=== PATIENT | female | born 1965 | race Caucasian/White ===

== ENCOUNTER 2016-08-05 09:52 | Emergency (ER) | payer OTHER ==
[~2016-08-05] VITALS: Ht 157.5 cm; Wt 109.0 kg
[~2016-08-05 09:52] MED LIST: GLUCOMETER XX; GLUCOMTESTSTRIPS XX; INSU-174 SQ; LEVEMIR SQ; LEVO125T3 PO; LOVA40TA PO; NOVOLOGSS SQ; PRIN5TAB PO; TRIA.1%T TOP
[2016-08-05 09:55] VITALS: BP 112/65; PULSE 101; RESP 18; TEMP 98.6; O2SAT 98
[2016-08-05] MEDS ORDERED: NOVOLOGP2 SQ (10:00)
[2016-08-05] MEDS ORDERED: METF1000 PO (10:04)
[2016-08-05] MEDS ORDERED: LEVO.2 PO (10:04)
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
[2016-08-05] MEDS ORDERED: RESP: ALBUTEROL 2.5 MG/3 ML NEB (SCH) NEB ONE (10:15)
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
[2016-08-05 11:11] VITALS: BP 112/66
== END 2016-08-05 11:05 | disposition home or self-care (01) ==
LOC: PHED 09:52
DX: J68.0 Bronchitis and pneumonitis due to chemicals, gases, fumes and vapors (principal); E11.9 Type 2 diabetes mellitus without complications; E03.9 Hypothyroidism, unspecified
CPT/HCPCS: 71010; 94664; 99285; J7613

== ENCOUNTER 2016-09-03 06:22 | Emergency (ER) | payer OTHER ==
[~2016-09-03] VITALS: Ht 157.5 cm; Wt 110.3 kg
[~2016-09-03 06:22] MED LIST changes: -GLUCOMETER XX; -GLUCOMTESTSTRIPS XX; -INSU-174 SQ; -LEVEMIR SQ; +LEVO.2 PO; -LEVO125T3 PO; -LOVA40TA PO; +METF1000 PO; +NOVOLOGP2 SQ; -NOVOLOGSS SQ; -PRIN5TAB PO; -TRIA.1%T TOP
[2016-09-03 06:28] VITALS: BP 144/96; PULSE 78; RESP 20; TEMP 97.9; O2SAT 99
[2016-09-03] MEDS ORDERED: water pill (06:47)
[2016-09-03] MEDS ORDERED: SODIUM CHLOR 0.9% 1000 ML INJ 1,000 ML IV SCH (07:09)
--- NOTE | 2016-09-03 07:14 | PD ---
HPI Chief Complaint: Abdominal Pain Time Seen by Provider: 07:00 Travel History International Travel<30 days: No Contact w/Intl Traveler<30days: No Traveled to known affect area: No History of Present Illness HPI 50-year-old female arrives at 2 months of epigastric abdominal pain. She describes a hard masslike sensation. The pain is constant and severe. This morning she vomited once. She reports her appetite and overall oral intake including solids and liquids is normal. No fever. Bowel movements have been normal. She has not tried any [id number] medication. She denies chest pain however states sometimes she has to take shallow breaths on account of the pain. She has seen her primary care doctor and has been on ranitidine for a year. She has an appointment with Dr. Schwartz in 5 days. [facility] Past Medical History Hx Anticoagulant Therapy: No Blood Disorders: No Anxiety: No Depression: No Heart Rhythm Problems: No Cancer: No Cardiovascular Problems: No Chemotherapy: No Chest Pain: No Congestive Heart Failure: No Cerebrovascular Accident: No Diabetes: Yes Patient Takes Glucophage: Yes Diminished Hearing: No Endocrine: No Gastrointestinal Disorders: Yes (new bloating) Glaucoma: No Genitourinary: No Hepatitis: No Hiatal Hernia: No Hypertension: No Immune Disorder: No Implanted Vascular Access Dvce: No Musculoskeletal: No Neurologic: No Psychiatric: No Reproductive: Yes Respiratory: No Immunizations Current: No Sleep Apnea: Yes (heavy breathing) Thyroid Disease: Yes (HYPOTHYROID ) Influenza Vaccination: Yes ?: Not Menopausal: Yes : 1 Para: 1 Past Surgical History Abdominal Surgery: No Cardiac Surgery: No Ear Surgery: No Endocrine Surgery: No Eye Surgery: No Genitourinary Surgery: No Gynecologic Surgery: Yes Hysterectomy: Yes Joint Replacement: No Neurologic Surgery: No Oral Surgery: No Pacemaker: No Thoracic Surgery: No Tonsillectomy: Yes (02/2010) Other Surgery: Yes (t&a, lymph nodes from nose, finger for lead poisoning) Social History Alcohol Use: Yes (SOCIALLY) Tobacco Use: No Substance Use: No Allergies-Medications (Allergen,Severity, Reaction): Coded Allergies: Morphine (Verified Allergy, Severe, Dizziness, 09/03/16) *MDRO Multi-Drug Resistant Organism (Verified Adverse Reaction, Unknown, ) MRSA (finger wound) - 2010 Reported Meds & Prescriptions Reported Meds & Active Scripts Active Lortab (Hydrocodone-Acetaminophen) 5-325 Mg Tab 1-2 Tab PO Q6H PRN Flagyl (Metronidazole) 500 Mg Tab 500 Mg PO TID 14 Days Cipro (Ciprofloxacin HCl) 500 Mg Tab 500 Mg PO BID 14 Days Reported [water pill] 1 Tab DAILY Metformin (Metformin HCl) 1,000 Mg Tab 1,000 Mg PO DAILY With a meal Synthroid (Levothyroxine Sodium) 200 Mcg Tab 225 Mcg PO DAILY Review of Systems Except as stated in HPI: all other systems reviewed are Neg General / Constitutional: No: Fever Gastrointestinal: Positive: Nausea, Vomiting, Abdominal Pain Physical Exam Narrative GENERAL: 50-year-old female pleasant no acute distress SKIN: Focused skin assessment warm/dry. HEAD: Atraumatic. Normocephalic. EYES: Pupils equal and round. No scleral icterus. No injection or drainage. ENT: No nasal bleeding or discharge. Mucous membranes pink and moist. NECK: Trachea midline. No JVD. CARDIOVASCULAR: Regular rate and rhythm. No murmur appreciated. RESPIRATORY: No accessory muscle use. Clear to auscultation. Breath sounds equal bilaterally. GASTROINTESTINAL: There is no hernia in the area of pain or mass present. Patient Gently palpates the epigastrium with fingers of each hand throughout the interview. The abdomen is soft. Specificity somewhat limited by body habitus with a BMI of 45. MUSCULOSKELETAL: No obvious deformities. No clubbing. No cyanosis. No edema. NEUROLOGICAL: Awake and alert. No obvious cranial nerve deficits. Motor grossly within normal limits. Normal speech. PSYCHIATRIC: Appropriate mood and affect; insight and judgment normal. Data Data Last Documented VS Vital Signs Date Time Temp Pulse Resp B/P Pulse Ox O2 Delivery O2 Flow Rate FiO2 09/03/16 08:42 88 18 140/60 98 09/03/16 07:15 Room Air 09/03/16 06:28 97.9 Vital signs reviewed Orders Complete Blood Count With Diff (09/03/16 07:09) Comprehensive Metabolic Panel (09/03/16 07:09) Lipase (09/03/16 07:09) Iv Access Insert/Monitor (09/03/16 07:09) Ecg Monitoring (09/03/16 07:09) Oximetry (09/03/16 07:09) Ondansetron Inj (Zofran Inj) (09/03/16 07:15) Sodium Chlor 0.9% 1000 Ml Inj (Ns 1000 M (09/03/16 07:09) Sodium Chloride 0.9% Flush (Ns Flush) (09/03/16 07:15) Dicyclomine (Bentyl) (09/03/16 07:15) Al-Mag Hy-Si 40-40-4 Mg/Ml Liq (Mag-Al P (09/03/16 07:15) Lidocaine 2% Viscous (Xylocaine 2% Visco (09/03/16 07:15) Ct Abd/Pel W Iv Contrast(Rout) (09/03/16 07:15) Iohexol 350 Inj (Omnipaque 350 Inj) (09/03/16 08:08) Ciprofloxacin (Cipro) (09/03/16 08:30) Metronidazole (Flagyl) (09/03/16 08:30) Labs Laboratory Tests Test 09/03/16 06:55 White Blood Count 8.9 TH/MM3 Red Blood Count 4.66 MIL/MM3 Hemoglobin 12.5 GM/DL Hematocrit 36.4 % Mean Corpuscular Volume 78.1 FL Mean Corpuscular Hemoglobin 26.7 PG Mean Corpuscular Hemoglobin 34.2 % Concent Red Cell Distribution Width 12.3 % Platelet Count 305 TH/MM3 Mean Platelet Volume 8.3 FL Neutrophils (%) (Auto) 64.8 % Lymphocytes (%) (Auto) 26.9 % Monocytes (%) (Auto) 6.2 % Eosinophils (%) (Auto) 1.8 % Basophils (%) (Auto) 0.3 % Neutrophils # (Auto) 5.7 TH/MM3 Lymphocytes # (Auto) 2.4 TH/MM3 Monocytes # (Auto) 0.6 TH/MM3 Eosinophils # (Auto) 0.2 TH/MM3 Basophils # (Auto) 0.0 TH/MM3 CBC Comment DIFF FINAL Differential Comment Sodium Level 145 MEQ/L Potassium Level 3.6 MEQ/L Chloride Level 107 MEQ/L Carbon Dioxide Level 26.5 MEQ/L Anion Gap 12 MEQ/L Blood Urea Nitrogen 13 MG/DL Creatinine 0.76 MG/DL Estimat Glomerular Filtration 80 ML/MIN Rate Random Glucose 113 MG/DL Calcium Level 8.9 MG/DL Total Bilirubin 0.3 MG/DL Aspartate Amino Transf 22 U/L (AST/SGOT) Alanine Aminotransferase 50 U/L (ALT/SGPT) Alkaline Phosphatase 112 U/L Total Protein 7.3 GM/DL Albumin 3.4 GM/DL Lipase 146 U/L MDM Medical Decision Making Medical Screen Exam Complete: Yes Emergency Medical Condition: Yes Medical Record Reviewed: Yes Differential Diagnosis Constipation, Gastritis, Acute Cholecystitis, Biliary Colic, Pancreatitis, STONE , Hepatitis, Bowel Obstruction, Cystitis, Mesenteric Ischemia, AAA, Appendicitis , Renal Stone/Hydronephrosis, GERD, perforated viscous Narrative Course CBC & BMP Diagram 09/03/16 06:55 LFTs normal Lipase 146 Last 24 hours Impressions Abdomen/Pelvis CT 09/03/16 0715 Signed Impressions: Service Date/Time: Saturday, September 03, 2016 07:52 - CONCLUSION: 1. Acute colonic diverticulitis in the midsigmoid region. No evidence of abscess or free air. 2. Hepatic steatosis. 3. Right adrenal adenoma. Right renal cyst. 4. 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 Corey Pickens MD The patient is resting comfortably and feels better, is alert and in no distress. The patients results and examination findings were discussed. The repeat examination is unremarkable and benign. The history, exam, diagnostic testing, and current condition do not suggest any significant pathology to warrant further testing, continued ED treatment, admission, or surgical evaluation at this point. The vital signs have been stable. The patient does not have uncontrollable pain, intractable vomiting, or other significant symptoms. The patient's condition is stable and appropriate for discharge. The patient will pursue further outpatient evaluation with a primary care physician or other designated or consulting physician as indicated in the discharge instructions. The patient expressed understanding and was agreeable with this plan. Diagnosis Primary Impression: Diverticulitis Qualified Code: K57.32 - Diverticulitis of large intestine without perforation or abscess without bleeding Additional Impressions: Hepatic steatosis Adrenal adenoma Qualified Code: D35.01 - Adrenal adenoma, right Referrals: Ian Schwartz MD Additional Instructions: You have a choice when it comes to health care, and we are glad that you chose [facility]. Hopefully, we have met your expectations on today's visit. You are welcome to return to [facility] at any time, as we are committed to meeting the health care needs of our community. Med/Other Pt SpecificInfo: Prescription(s) given Scripts Hydrocodone-Acetaminophen (Lortab)5-325 Mg Tab1-2 Tab PO Q6H PRN (PAIN SCALE 6 TO 10) #15 TAB Ref 0 Prov:Alexandru Jerez MD 09/03/16 Metronidazole (Flagyl)500 Mg [id number] Mg PO TID 14 Days Ref 0 Prov:Alexandru Jerez MD 09/03/16 Ciprofloxacin (Cipro)500 Mg [id number] Mg PO BID 14 Days Ref 0 Prov:Alexandru Jerez MD 09/03/16 Disposition: 01 DISCHARGE HOME Condition: Stable Alexandru Jerez MD Sep 03, 2016 07:14
[2016-09-03 07:15] VITALS: RESP 16; O2SAT 99
[2016-09-03] MEDS ORDERED: ONDANSETRON HCL 4 MG/2 ML VIAL IVP ONE (07:15)
[2016-09-03] MEDS ORDERED: SODIUM CHLORIDE 0.9% FLUSH 10 ML FLUSH IV FLUSH PRN (07:15)
[2016-09-03] MEDS ORDERED: ALUMINUM/MAGNESIUM/SIMETH 30 ML CUP PO ONE (07:15)
[2016-09-03] MEDS ORDERED: DICYCLOMINE HCL 10 MG CAP PO ONE (07:15)
[2016-09-03] MEDS ORDERED: LIDOCAINE VISCOUS 2% SOLN 15 ML UDC PO ONE (07:15)
[2016-09-03 07:22] LABS: AUTOMATED NEUTROPHIL # 5.7 TH/MM3 (1.8-7.7); BASOPHIL % 0.3 % (0.0-2.0); EOSINOPHIL # 0.2 TH/MM3 (0-0.4); EOSINOPHIL % 1.8 % (0.0-4.0); HEMATOCRIT 36.4 % (35.0-46.0); HEMO FLAGS DIFF FINAL; LYMPH % 26.9 % (9.0-44.0); LYMPHOCYTE # 2.4 TH/MM3 (1.0-4.8); MEAN CELL VOLUME 78.1 FL (80.0-100.0); MEAN CORPUSCULAR HEMOGLOBIN 26.7 PG (27.0-34.0); MEAN CORPUSCULAR HGB CONC 34.2 % (32.0-36.0); MONO % 6.2 % (0.0-8.0); NEUT % 64.8 % (16.0-70.0); PLATELET COUNT 305 TH/MM3 (150-450); RED BLOOD COUNT 4.66 MIL/MM3 (4.00-5.30); RED CELL DISTRIBUTION WIDTH 12.3 % (11.6-17.2); WHITE BLOOD COUNT 8.9 TH/MM3 (4.0-11.0)
[2016-09-03 07:30] LABS: CHLORIDE 107 MEQ/L (98-107); POTASSIUM 3.6 MEQ/L (3.5-5.1); SODIUM (NA) 145 MEQ/L (136-145)
[2016-09-03 07:34] LABS: ANION GAP 12 MEQ/L (5-15); BICARBONATE 26.5 MEQ/L (21.0-32.0); BLOOD UREA NITROGEN 13 MG/DL (7-18)
[2016-09-03 07:37] LABS: ALT (GPT) 50 U/L (10-53); AST (GOT) 22 U/L (15-37); GLOMERULAR FILTRATION RATE 80 ML/MIN (>89)
[2016-09-03 07:39] LABS: TOTAL BILIRUBIN ADULT 0.3 MG/DL (0.2-1.0)
[2016-09-03 07:40] LABS: ALKALINE PHOSPHATASE 112 U/L (45-117)
[2016-09-03 07:43] VITALS: BP 144/61; PULSE 79; RESP 16; O2SAT 98
[2016-09-03] MEDS ORDERED: IOHEXOL 350 MG/ML 10 ML VIAL (for RAD DIAG) IV ONE (08:08)
--- NOTE | 2016-09-03 08:23 | RADHPO ---
EXAM DATE/TIME: 09/03/2016 07:52 [facility] COMPARISON: CT LUMBAR SPINE W/O CONTRAST, August 09, 2012, 20:38. CHEST SINGLE AP, August 05, 2016, 10:23. INDICATIONS : Epigastric pain and vomiting. IV CONTRAST: 95 cc Omnipaque 350 (iohexol) IV ORAL CONTRAST: No oral contrast ingested. RADIATION DOSE: 24.48 CTDIvol (mGy) MEDICAL HISTORY : Hypothyroidism. Diabetes. SURGICAL HISTORY : Hysterectomy. ENCOUNTER: Initial ACUITY: 2 months PAIN SCALE: 10/10 LOCATION: upper quadrant TECHNIQUE: Volumetric scanning of the abdomen and pelvis was performed. Using automated exposure control and ad justment of the mA and/or kV according to patient size, radiation dose was kept as low as reasonably achievable to obtain optimal diagnostic quality images. FINDINGS: LOWER LUNGS: The visualized lower lungs are clear. LIVER: Diffuse hypo-density of the liver indicating hepatic steatosis. No focal mass. Gallbladder within nor mal limits. SPLEEN: Normal size without lesion. PANCREAS: Within normal limits. KIDNEYS: 2.2 cm cyst in the medial midpole of the right kidney. Focal cortical scarring also noted bilaterally . No evidence of hydronephrosis. ADRENAL GLANDS: 1 cm right adrenal nodule unchanged from lumbar spine CT of 2012, indicating an adenoma. Left adrenal gland is within normal limits. VASCULAR: There is no aortic aneurysm. BOWEL/MESENTERY: Multiple colonic diverticula. Stranding/haziness opacity adjacent to the mid sigmoid colon in the lef t lower quadrant indicating acute diverticulitis. No evidence of abscess or free air. No bowel dilata tion. Appendix within normal limits. No free fluid. ABDOMINAL WALL: Within normal limits. RETROPERITONEUM: There is no lymphadenopathy. BLADDER: No wall thickening or mass. REPRODUCTIVE: Within normal limits. INGUINAL: There is no lymphadenopathy or hernia. MUSCULOSKELETAL: Chronic L4 pars interarticularis defects. Degenerative findings of the lumbar spine. CONCLUSION: 1. Acute colonic diverticulitis in the midsigmoid region. No evidence of abscess or free air. 2. Hepatic steatosis. 3. Right adrenal adenoma. Right renal cyst. 4. 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 Corey Pickens MD on September 03, 2016 at 8:14 Board Certified Radiologist. This report was verified electronically.
[2016-09-03] MEDS ORDERED: metroNIDAZOLE 500 MG TAB PO ONE (08:30)
[2016-09-03] MEDS ORDERED: CIPROFLOXACIN 500 MG TAB PO ONE (08:30)
[2016-09-03] MEDS ORDERED: CIPR-9 PO (08:32)
[2016-09-03] MEDS ORDERED: HYDR-3533 PO (08:32)
[2016-09-03] MEDS ORDERED: METR-1 PO (08:32)
[2016-09-03 08:42] VITALS: BP 140/60
== END 2016-09-03 08:54 | disposition home or self-care (01) ==
LOC: PHED 06:22
DX: E11.9 Type 2 diabetes mellitus without complications (principal); E03.9 Hypothyroidism, unspecified; Z79.4 Long term (current) use of insulin
CPT/HCPCS: 74177; 80053; 83690; 85025; 96374; 99284; J2405; J7030; Q9967

== ENCOUNTER 2016-09-23 19:14 | Emergency (ER) | payer OTHER ==
[~2016-09-23] VITALS: Ht 157.5 cm; Wt 107.8 kg
[~2016-09-23 19:14] MED LIST changes: +CIPR-9 PO; +HYDR-3533 PO; +METR-1 PO; -NOVOLOGP2 SQ; +water pill
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
[2016-09-23 19:49] VITALS: BP 124/75; PULSE 90; RESP 20; TEMP 98.5; O2SAT 97
[2016-09-23] MEDS ORDERED: RANI1TAB5 PO (19:56)
[2016-09-23] MEDS ORDERED: GLIP10TA6 PO (19:56)
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
[2016-09-23] MEDS ORDERED: TRAM50TA PO (20:45)
[2016-09-23] MEDS ORDERED: ORPH100T99 PO (20:45)
[2016-09-23] MEDS ORDERED: IBUP-232 PO (20:45)
[2016-09-23] MEDS ORDERED: KETOROLAC TROMETHAMINE 60 MG/2 ML (IM) VIAL IM ONE (20:45)
== END 2016-09-23 21:01 | disposition home or self-care (01) ==
LOC: PHED 19:14
DX: S16.1XXA Strain of muscle, fascia and tendon at neck level, initial encounter (principal); G47.30 Sleep apnea, unspecified; E03.9 Hypothyroidism, unspecified; V73.5XXA Driver of bus injured in collision with car, pick-up truck or van in traffic accident, initial encounter; Y93.9 Activity, unspecified; Y92.9 Unspecified place or not applicable; Y99.9 Unspecified external cause status; E11.9 Type 2 diabetes mellitus without complications
CPT/HCPCS: 72125; 96372; 99284; J1885

== ENCOUNTER 2017-02-09 10:05 | Emergency (ER) | payer OTHER ==
[~2017-02-09] VITALS: Ht 160 cm; Wt 100.1 kg
[~2017-02-09 10:05] MED LIST changes: -CIPR-9 PO; +GLIP10TA6 PO; -HYDR-3533 PO; +IBUP-232 PO; -METR-1 PO; +ORPH100T99 PO; +RANI1TAB5 PO; +TRAM50TA PO; -water pill
[2017-02-09 10:10] VITALS: BP 136/70; PULSE 74; RESP 16; TEMP 97.6; O2SAT 99
[2017-02-09] MEDS ORDERED: TRAM50TA PO (10:41)
[2017-02-09] MEDS ORDERED: CYCL1TAB29 PO (10:41)
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
== END 2017-02-09 10:58 | disposition home or self-care (01) ==
LOC: PHED 10:05
DX: S16.1XXD Strain of muscle, fascia and tendon at neck level, subsequent encounter (principal); E11.9 Type 2 diabetes mellitus without complications; K21.9 Gastro-esophageal reflux disease without esophagitis; E03.9 Hypothyroidism, unspecified; V49.9XXD Car occupant (driver) (passenger) injured in unspecified traffic accident, subsequent encounter
CPT/HCPCS: 99284

== ENCOUNTER 2017-06-05 10:30 | Inpatient (IN) | payer OTHER ==
[~2017-06-05] VITALS: Ht 157.5 cm; Wt 104.8 kg
[~2017-06-05 10:30] MED LIST changes: +CYCL10TA PO; +ORPH100T2 PO; -ORPH100T99 PO
[2017-06-22] MEDS ORDERED: INSU1INJ5 SQ (08:42)
[2017-06-22] MEDS ORDERED: NOVOINJ3 SQ (08:42)
[2017-07-09] MEDS ORDERED: METOPROLOL TARTRATE 25 MG TAB PO PRN (05:45)
[2017-07-09] MEDS ORDERED: SODIUM CHLORID 0.9% 500 ML IV PRN (05:45)
[2017-07-09] MEDS ORDERED: TRANEXAMIC ACID INJ 1,050 MG in SODIUM CHLORIDE 0.9% INJ 100 ML IV SCH ×5 (05:45→07:00)
[2017-07-09] MEDS ORDERED: ceFAZolin 2 GM PREMIX 50 ML IV SCH (05:45)
[2017-07-09] MEDS ORDERED: CHLORHEXIDINE GLUCONATE 2 % 1 PACK (2 CLOTHS) TOPICAL PRN (05:45)
[2017-07-09] MEDS ORDERED: CHLORHEXIDINE GLUCONATE 4% SOLN 120 ML BTL TOPICAL SCH (05:45)
[2017-07-09] MEDS ORDERED: LACTATED RINGER'S 1000 ML IV PRN (05:45)
[2017-07-09] MEDS ORDERED: EXPAREL PERI-ARTICULAR INJECTION (TOTAL VOL. 100 ML) P-ARTICULR SCH ×2 (05:45)
[2017-07-09] MEDS ORDERED: POVIDONE IODINE 5% (ANTISEPSIS KIT) 4 APPLICATIONS EACH NARE PRN (05:45)
[2017-07-09] MEDS ORDERED: MIDAZOLAM HCL 5 MG/5 ML VIAL ONE (05:56)
[2017-07-09 05:57] VITALS: PULSE 76
[2017-07-09] MEDS ORDERED: INSULIN HUMAN REGULAR 1,000 UNITS/10 ML VIAL ONE (06:03)
[2017-07-09] MEDS ORDERED: GENTAMICIN SULFATE 80 MG/2 ML VIAL ONE (06:15)
[2017-07-09] MEDS ORDERED: FAT EMULSION 20% INJ 0 ML ONE (06:16)
[2017-07-09] MEDS ORDERED: KETAMINE HCL 10 MG/5 ML SYRINGE IV PUSH ONE (06:38)
[2017-07-09] MEDS ORDERED: ACETAMINOPHEN 1000 MG/100 ML 100 ML IV ONE (06:38)
[2017-07-09] MEDS ORDERED: FAMOTIDINE 20 MG/2 ML VIAL ONE (06:40)
[2017-07-09] MEDS ORDERED: HYDROmorphone HCL PF 2 MG/ML VIAL IV PUSH PRN (06:45)
[2017-07-09] MEDS ORDERED: ONDANSETRON HCL 4 MG/2 ML VIAL IVP PRN (06:45)
[2017-07-09] MEDS ORDERED: Post-op Orders (for Pharmacy) XX ONE (06:45)
[2017-07-09] MEDS ORDERED: ACETAMINOPHEN/HYDROcodone 325 MG/7.5 MG TAB PO PRN (06:45)
[2017-07-09] MEDS ORDERED: INSULIN ASPART 1 UNIT SQ PRN (06:45)
[2017-07-09] MEDS ORDERED: MAGNESIUM HYDROXIDE SUSP 30 ML CUP PO PRN (06:45)
--- NOTE | 2017-07-09 06:48 | HHI.FF ---
Face to Face Verification Diagnosis: (1) Status post total left knee replacement Physical Therapy Gait training Knee: Total knee, Protocol: Left, Gait training, Full weight bearing Left LE Weight Bearing: WB as tolerated Left LE Range of Motion: Active ROM (active, active-assisted, passive range of motion. Range of motion goal is 0 extension to 130 of flexion.) Nursing Nursing: Dressing changes Dressing Changes: Daily dressing change, Coverderm/Primapore Additional Instructions Daily dressing changes are to begin on postoperative day 7. Steri-Strips are to be removed on postoperative day 14. I have seen patient Karely Husain on 07/09/17. My clinical findings support the need for the requested home health care services because: Ltd mobility - disease progression Limited ability to care for self High risk of falls I certify that my clinical findings support that this patient is homebound because: Post-op weakness Unsteady gait/balance Unsafe to leave home unassisted Pepito Hamilton MD (Charles) Jul 09, 2017 06:48
[2017-07-09] MEDS ORDERED: ECASA81 PO (06:50)
[2017-07-09] MEDS: LEVOTHYROXINE SODIUM 125 MCG TAB PO SCH (08:00)
[2017-07-09] MEDS: LEVOTHYROXINE SODIUM 100 MCG TAB PO SCH (08:00)
[2017-07-09] MEDS: metFORMIN HCL 500 MG TAB PO SCH (09:00)
[2017-07-09] MEDS: FAMOTIDINE 20 MG TAB PO SCH (09:00)
[2017-07-09] MEDS: glipiZIDE 10 MG TAB PO SCH (09:00)
[2017-07-09] MEDS ORDERED: ASPIRIN EC 81 MG TABEC PO SCH (09:00)
[2017-07-09] MEDS: INSULIN DETEMIR 100 UNITS/ML VIAL SQ SCH (09:00)
[2017-07-09] MEDS: CYCLOBENZAPRINE HCL 10 MG TAB PO SCH ×3 (09:00→18:33)
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
[2017-07-09] MEDS ORDERED: HYDR-3580 PO (09:58)
[2017-07-09] MEDS ORDERED: DO NOT ADM ANY ANTICOAGULANT DRUGS PRN (10:09)
[2017-07-09 10:12] VITALS: PULSE 96
[2017-07-09] MEDS: LACTATED RINGER'S 1000 ML INJ 1,000 ML IV SCH ×2 (10:42→19:11)
[2017-07-09] MEDS: KETOROLAC TROMETHAMINE 30 MG/ML (IVP) VIAL IVP SCH ×3 (10:46→18:26)
--- NOTE | 2017-07-09 11:29 | RADRPT ---
EXAM DATE/TIME: 07/09/2017 10:51 [facility] COMPARISON: No previous studies available for comparison. INDICATIONS : Post-op total left knee arthroplasty. MEDICAL HISTORY : Hypertension. Diabetes mellitus type II. SURGICAL HISTORY : None. ENCOUNTER: Initial ACUITY: 1 day PAIN SCORE: 8/10 LOCATION: Left knee. FINDINGS: AP and lateral views of the knee following arthroplasty reveals a prosthesis in anatomic alignment. F racture is not appreciated. Surgical drain is evident CONCLUSION: Status post total knee arthroplasty. Marty Carlin MD FACR Marty Carlin MD FACR on July 09, 2017 at 11:27 Board Certified Radiologist. This report was verified electronically.
[2017-07-09] MEDS ORDERED: NEOSTIGMINE 5 MG/5 ML SYRINGE IV PUSH ONE ×2 (12:00)
[2017-07-09] MEDS ORDERED: ROCURONIUM INJ 50 MG/5 ML SYRINGE IV PUSH ONE ×2 (12:00)
[2017-07-09] MEDS ORDERED: PROPOFOL 200 MG/20 ML AMP IV ONE ×2 (12:00)
[2017-07-09] MEDS ORDERED: LIDOCAINE HCL 1% PF 5 ML SYRINGE OTHER ONE ×2 (12:00)
[2017-07-09] MEDS ORDERED: PHENYLEPH/NS 1000 MCG/10 ML SYR IV ONE ×2 (12:00)
[2017-07-09] MEDS ORDERED: ONDANSETRON HCL 4 MG/2 ML VIAL IV ONE ×2 (12:00)
[2017-07-09] MEDS: INSULIN ASPART SUPPLEMENTAL SCALE SQ SCH ×3 (12:00→20:34)
[2017-07-09] MEDS ORDERED: GLYCOPYRROLATE 1 MG/5 ML SYRINGE IV PUSH ONE ×2 (12:00)
[2017-07-09] MEDS ORDERED: LACTATED RINGER'S 1000 ML INJ 1,000 ML IV ONE ×2 (12:00)
[2017-07-09] MEDS ORDERED: *ONDANSETRON 4 MG VIAL PERIprocedural Use ONLY ONE (12:41)
[2017-07-09] MEDS ORDERED: ceFAZolin INJ 1,000 MG VIAL ONE (14:07)
[2017-07-09] MEDS ORDERED: SODIUM CHLORIDE 0.9% INJ 100 ML ONE (14:07)
[2017-07-09 15:44] VITALS: BP 117/74; PULSE 78; RESP 17; TEMP 95.4; O2SAT 100
--- NOTE | 2017-07-09 18:05 | PD.CONS ---
HPI Service [facility] Hospitalists Consult Requested By Primary Care Physician Felisha (Tommy) MD Rupesh Diagnoses: History of Present Illness 51-year-old female with a history of hypothyroidism, diabetes on oral medications and insulin, hyperlipidemia, osteoarthritis who is currently postop left knee replacement by orthopedics. Patient reports feeling well. Denies any chest pain or shortness. Denies any nausea or vomiting. Denies any recent illness. She reports pain is controlled currently. Review of Systems Except as stated in HPI: all other systems reviewed are Neg Past Family Social History Allergies: Coded Allergies: morphine (Unverified Allergy, Mild, STATES SHE IS NOT ALLERGIC, 07/09/17) *MDRO Multi-Drug Resistant Organism (Verified Adverse Reaction, Unknown, 02/09/17) MRSA (finger wound) - 2010 Past Medical History Hypothyroidism Diabetes Hyperlipidemia Osteoarthritis GERD Past Surgical History Hysterectomy Tonsillectomy Reported Medications Flexeril 10 mg by mouth 3 times a day Ibuprofen 600 mg by mouth every 6 hours when necessary Ranitidine 70 mg by mouth daily Metformin 1000 mg by mouth daily Levemir 35 units subcutaneous daily Insulin sliding scale Glipizide 10 mg by mouth daily Synthroid 225 g by mouth daily Family History Father during gallbladder operation, however had cancer. Mother at age 52 from breast cancer. Sister in her 40s from ovarian cancer Social History Remote past history of smoking when she was 16 years old, however has not smoked since. Nondrinker. Denies illicit drugs. Physical Exam Vital Signs Vital Signs Date Time Temp Pulse Resp B/P (MAP) Pulse Ox O2 Delivery O2 Flow Rate FiO2 07/09/17 15:44 95.4 78 17 117/74 (88) 100 07/09/17 14:00 73 17 116/60 (78) 99 Nasal Cannula 3 07/09/17 13:00 70 12 111/58 (75) 97 Nasal Cannula 3 07/09/17 12:00 97.3 84 12 124/77 (93) 99 Nasal Cannula 3 07/09/17 11:30 80 12 108/60 (76) 98 Nasal Cannula 3 07/09/17 11:00 76 24 110/58 (75) 96 Nasal Cannula 3 07/09/17 10:45 74 20 122/66 (84) 97 Nasal Cannula 4 07/09/17 10:30 80 25 133/72 (92) 99 Nasal Cannula 4 07/09/17 10:12 96 07/09/17 10:12 97.8 96 17 136/85 (102) 100 Simple Mask 6 07/09/17 05:57 76 07/09/17 05:46 98.0 80 18 143/105 (118) 98 Physical Exam GENERAL: This is a well-nourished, well-developed patient, in no apparent distress. SKIN: No rashes, ecchymoses or lesions. Cool and dry. HEAD: Atraumatic. Normocephalic. No temporal or scalp tenderness. EYES: Pupils equal round and reactive. Extraocular motions intact. No scleral icterus. No injection or drainage. ENT: Nose without bleeding, purulent drainage or septal hematoma. Throat without erythema, tonsillar hypertrophy or exudate. Uvula midline. Airway patent. NECK: Trachea midline. No JVD or lymphadenopathy. Supple, nontender, no meningeal signs. CARDIOVASCULAR: Regular rate and rhythm without murmurs, gallops, or rubs. RESPIRATORY: Clear to auscultation. Breath sounds equal bilaterally. No wheezes , rales, or rhonchi. GASTROINTESTINAL: Abdomen soft, non-tender, nondistended. No hepato-splenomegaly , or palpable masses. No guarding. MUSCULOSKELETAL: Extremities without clubbing, cyanosis, or edema. No joint tenderness, effusion, or edema noted. No calf tenderness. Negative Homans sign bilaterally. NEUROLOGICAL: Awake and alert. Cranial nerves II through XII intact. Motor and sensory grossly within normal limits. Five out of 5 muscle strength in all muscle groups. Normal speech. Imaging Last Impressions Knee X-Ray 07/09/17 0641 Signed Impressions: Service Date/Time: Sunday, July 09, 2017 10:51 - CONCLUSION: Status post total knee arthroplasty. Marty Carlin MD Assessment and Plan Assessment and Plan //Postoperative left knee replacement = Post surgical management as per surgical service. = Awaiting return of bowel function. //Hypothyroidism. Chronic. Continue home medications //Diabetes mellitus. Chronic. = Diabetic diet, insulin signs scale. Continue to monitor blood sugars. //Hyperlipidemia. Chronic. Continue home medications. //GERD. Chronic. Continue ranitidine //Prophylaxis. As per surgical service. Discussed Condition With patient, nurse Brain Gonzalez MD Jul 09, 2017 18:05
[2017-07-09] MEDS ORDERED: INSULIN DETEMIR 100 UNITS/ML VIAL SQ SCH (18:30)
[2017-07-09] MEDS ORDERED: MAGNESIUM HYDROXIDE SUSP 30 ML CUP PO ONE (18:30)
[2017-07-09] MEDS ORDERED: DOCUSATE SODIUM 50 MG/SENNA 8.6 MG TAB PO ONE (18:30)
[2017-07-09] MEDS: ACETAMINOPHEN/HYDROcodone 325 MG/7.5 MG TAB PO PRN (20:21)
[2017-07-09 20:45] VITALS: BP 125/59; PULSE 94; RESP 18; TEMP 99.4; O2SAT 100
[2017-07-09] MEDS: ZOLPIDEM TARTRATE 5 MG TAB PO PRN (22:11)
[2017-07-10] VITALS (8 sets, daily range): BP systolic 101–127; BP diastolic 53–70; PULSE 93–104; RESP 17–18; TEMP 96.8–98.4; O2SAT 94–98
[2017-07-10] MEDS: KETOROLAC TROMETHAMINE 30 MG/ML (IVP) VIAL IVP SCH ×5 (01:48→23:56)
[2017-07-10] MEDS: LEVOTHYROXINE SODIUM 125 MCG TAB PO SCH (05:23)
[2017-07-10] MEDS: LEVOTHYROXINE SODIUM 100 MCG TAB PO SCH (05:23)
--- NOTE | 2017-07-10 06:17 | PD.ORT.PN ---
Subjective Post Op Day #: 1 Subjective Remarks She has some pain as expected. She has been walking in the room. She has been up to the bathroom. She has been using a walker with assistance. Range of Motion 0-91. Distance Walked 25 feet with PT. Objective Vitals Vital Signs Date Time Temp Pulse Resp B/P (MAP) Pulse Ox O2 Delivery O2 Flow Rate FiO2 07/10/17 05:58 18 07/10/17 00:50 97.6 98 18 102/53 (69) 94 07/09/17 23:44 Nasal Cannula 2.00 07/09/17 21:21 18 07/09/17 20:45 99.4 94 18 125/59 (81) 100 07/09/17 15:44 95.4 78 17 117/74 (88) 100 07/09/17 14:00 73 17 116/60 (78) 99 Nasal Cannula 3 07/09/17 13:00 70 12 111/58 (75) 97 Nasal Cannula 3 07/09/17 12:00 97.3 84 12 124/77 (93) 99 Nasal Cannula 3 07/09/17 11:30 80 12 108/60 (76) 98 Nasal Cannula 3 07/09/17 11:00 76 24 110/58 (75) 96 Nasal Cannula 3 07/09/17 10:45 74 20 122/66 (84) 97 Nasal Cannula 4 07/09/17 10:30 80 25 133/72 (92) 99 Nasal Cannula 4 07/09/17 10:12 96 07/09/17 10:12 97.8 96 17 136/85 (102) 100 Simple Mask 6 I/O 07/09/17 07/09/17 07/09/17 07/10/17 07/10/17 07/10/17 07:00 15:00 23:00 07:00 15:00 23:00 Intake Total 1400 ml Output Total 510 ml 50 ml Balance 890 ml -50 ml Other 1400 ml Output Drainage Total 110 ml 50 ml Estimated Blood Loss 400 ml Imaging Last 24 hours Impressions Knee X-Ray 07/09/17 0641 Signed Impressions: Service Date/Time: Sunday, July 09, 2017 10:51 - CONCLUSION: Status post total knee arthroplasty. Marty Carlin MD Objective Remarks She is resting comfortably, supine in bed, in the CPM. The neurovascular status is intact. The dressing is dry and intact. Assessment & Plan Ortho Post Op Day #: 1 Problem List: (1) Primary osteoarthritis of left knee ICD Codes: M17.12 - Unilateral primary osteoarthritis, left knee Status: Resolved (2) Status post total left knee replacement ICD Codes: Z96.652 - Presence of left artificial knee joint Plan: Continue postop care and PT. Assessment and Plan Condition: Good. Orthopedically stable. DVT prophylaxis: Sequentials, KARLIE stockings, aspirin 81 mg twice daily. Discharge plans: Home with home health care. An appointment was scheduled through the office. Prescriptions: [place] 7.5/325 Pepito Hamilton MD (Charles) Jul 10, 2017 06:17
[2017-07-10 06:53] LABS: HEMATOCRIT 29.9 % (35.0-46.0); HEMOGLOBIN 10.2 GM/DL (11.6-15.3)
[2017-07-10 07:21] LABS: ALBUMIN 2.9 GM/DL (3.4-5.0); BICARBONATE 28.4 MEQ/L (21.0-32.0); CALCIUM 8.4 MG/DL (8.5-10.1); CREATININE 0.95 MG/DL (0.50-1.00); PHOSPHORUS 2.6 MG/DL (2.5-4.9)
[2017-07-10] MEDS: LACTATED RINGER'S 1000 ML INJ 1,000 ML IV SCH (07:41)
[2017-07-10] MEDS: INSULIN DETEMIR 100 UNITS/ML VIAL SQ SCH (09:00)
[2017-07-10] MEDS: metFORMIN HCL 500 MG TAB PO SCH (09:07)
[2017-07-10] MEDS: INSULIN ASPART SUPPLEMENTAL SCALE SQ SCH ×4 (09:07→20:11)
[2017-07-10] MEDS: CYCLOBENZAPRINE HCL 10 MG TAB PO SCH ×3 (09:07→17:02)
[2017-07-10] MEDS: glipiZIDE 10 MG TAB PO SCH (09:07)
[2017-07-10] MEDS: FAMOTIDINE 20 MG TAB PO SCH (09:07)
[2017-07-10] MEDS: ASPIRIN EC 81 MG TABEC PO SCH ×2 (09:07→20:06)
[2017-07-10] MEDS: ACETAMINOPHEN/HYDROcodone 325 MG/7.5 MG TAB PO PRN ×3 (12:36→21:50)
--- NOTE | 2017-07-10 14:18 | HHI.PR ---
Subjective Remarks Patient seen and examined this morning around 9 AM. Says she is feeling all right. Denies any chest pain or shortness of breath. Reports pain is controlled. No bowel movement yet. Denies any abdominal pain. Denies any nausea or vomiting. Unfortunately, patient did not take any long-acting insulin yesterday morning. Objective Vital Signs Date Time Temp Pulse Resp B/P (MAP) Pulse Ox O2 Delivery O2 Flow Rate FiO2 07/10/17 11:48 96.8 104 18 127/70 (89) 96 07/10/17 09:29 98 07/10/17 08:00 97.6 101 18 115/68 (84) 98 07/10/17 07:00 Room Air 07/10/17 05:58 18 07/10/17 04:15 98.4 99 17 111/61 (78) 96 07/10/17 00:50 97.6 98 18 102/53 (69) 94 07/09/17 23:44 Nasal Cannula 2.00 07/09/17 21:21 18 07/09/17 20:45 99.4 94 18 125/59 (81) 100 07/09/17 15:44 95.4 78 17 117/74 (88) 100 I/O 07/09/17 07/09/17 07/09/17 07/10/17 07/10/17 07/10/17 07:00 15:00 23:00 07:00 15:00 23:00 Intake Total 1400 ml 100 ml 580 ml Output Total 510 ml 50 ml 100 ml Balance 890 ml 50 ml 480 ml Intake Oral 480 ml IV Total 100 ml 100 ml Other 1400 ml Output Drainage Total 110 ml 50 ml 100 ml Estimated Blood Loss 400 ml # Voids 2 # Bowel Movements 0 Result Diagram: 07/10/17 0554 07/10/17 0554 Objective Remarks GENERAL: Patient sitting up in bed. Appears comfortable. Alert and oriented 3. SKIN: Warm and dry. HEAD: Normocephalic. EYES: No scleral icterus. No injection or drainage. NECK: Supple, trachea midline. No JVD. CARDIOVASCULAR: Regular rate and rhythm without murmurs, gallops, or rubs. RESPIRATORY: Breath sounds equal bilaterally. No accessory muscle use. GASTROINTESTINAL: Abdomen soft, non-tender, nondistended. MUSCULOSKELETAL: No cyanosis, or edema. Postoperative knee not examined. BACK: Nontender without obvious deformity. No CVA tenderness. A/P Assessment and Plan //Postoperative left knee replacement = Post surgical management as per surgical service. = Awaiting return of bowel function. Laxatives ordered //Hypothyroidism. Chronic. Continue home medications //Diabetes mellitus. Chronic. = Diabetic diet, insulin signs scale. Continue to monitor blood sugars. = 3/6 still with sugars elevated this morning in the 300s. Discussed with nursing. We will increase sliding scale to home regimen, and give long-acting Levemir this morning. //Hyperlipidemia. Chronic. Continue home medications. //GERD. Chronic. Continue ranitidine //Prophylaxis. As per surgical service. Discharge Planning Patient's blood sugar improved under 200 by noon. She is back on home insulin regimen. Patient is cleared for discharge medically at this time. Brain Gonzalez MD Jul 10, 2017 14:18
[2017-07-10] MEDS ORDERED: SODIUM CHLORID 0.9% 500 ML INJ 500 ML IV ONE (14:30)
[2017-07-10] MEDS ORDERED: DEXTROSE 50% IN WATER 50 ML VIAL(D50) IV PUSH PRN (14:30)
[2017-07-10] MEDS ORDERED: GLUCAGON 1 MG/ML VIAL OTHER PRN (14:30)
[2017-07-10] MEDS ORDERED: DOCUSATE SODIUM 50 MG/SENNA 8.6 MG TAB PO ONE (14:30)
[2017-07-10] MEDS ORDERED: MAGNESIUM HYDROXIDE SUSP 30 ML CUP PO ONE (14:30)
[2017-07-10] MEDS: DOCUSATE SODIUM 100 MG CAP PO SCH (20:07)
[2017-07-10] MEDS: ZOLPIDEM TARTRATE 5 MG TAB PO PRN (21:50)
[2017-07-11 00:15] VITALS: BP 130/72; PULSE 90; RESP 17; TEMP 97.9; O2SAT 94
[2017-07-11 04:05] VITALS: BP 131/73; PULSE 102; RESP 17; TEMP 97.7; O2SAT 96
[2017-07-11] MEDS: LEVOTHYROXINE SODIUM 125 MCG TAB PO SCH (05:10)
[2017-07-11] MEDS: LEVOTHYROXINE SODIUM 100 MCG TAB PO SCH (05:10)
[2017-07-11] MEDS: ACETAMINOPHEN/HYDROcodone 325 MG/7.5 MG TAB PO PRN ×4 (05:10→17:31)
--- NOTE | 2017-07-11 07:12 | PD.ORT.PN ---
Subjective Post Op Day #: 2 Subjective Remarks She has somewhat less pain. She has done well with PT. Range of Motion -8 extension to 92 of flexion Distance Walked 90 feet in the morning, then 110 feet in the afternoon with PT. Objective Vitals Vital Signs Date Time Temp Pulse Resp B/P (MAP) Pulse Ox O2 Delivery O2 Flow Rate FiO2 07/11/17 04:05 97.7 102 17 131/73 (92) 96 07/11/17 00:15 97.9 90 17 130/72 (91) 94 07/10/17 20:40 98.0 93 18 101/64 (76) 97 07/10/17 20:15 Room Air 07/10/17 17:11 98 21 07/10/17 16:00 98.3 96 18 116/59 (78) 98 07/10/17 11:48 96.8 104 18 127/70 (89) 96 07/10/17 09:29 98 07/10/17 08:00 97.6 101 18 115/68 (84) 98 I/O 07/10/17 07/10/17 07/10/17 07/11/17 07/11/17 07/11/17 07:00 15:00 23:00 07:00 15:00 23:00 Intake Total 580 ml 480 ml 960 ml Output Total 100 ml 175 ml 28 ml Balance 480 ml 480 ml -175 ml 932 ml Intake Oral 480 ml 480 ml 960 ml IV Total 100 ml Output Urine Total 3 ml Drainage Total 100 ml 175 ml 25 ml # Voids 2 3 # Bowel Movements 0 0 0 Result Diagram: 07/10/17 0554 07/10/17 0554 Imaging Last 24 hours Impressions Knee X-Ray 07/09/17 0641 Signed Impressions: Service Date/Time: Sunday, July 09, 2017 10:51 - CONCLUSION: Status post total knee arthroplasty. Marty Carlin MD Objective Remarks She is resting comfortably, supine in bed, in the [facility]. The neurovascular status is intact. The dressing is dry and intact. Assessment & Plan Ortho Post Op Day #: 2 Problem List: (1) Primary osteoarthritis of left knee ICD Codes: M17.12 - Unilateral primary osteoarthritis, left knee Status: Resolved (2) Status post total left knee replacement ICD Codes: Z96.652 - Presence of left artificial knee joint Status: Chronic Plan: Continue postop care and PT. Assessment and Plan Condition: Good. Orthopedically stable. DVT prophylaxis: Sequentials, KARLIE stockings, aspirin 81 mg twice daily. Discharge plans: Home with home health care. An appointment was scheduled through the office. Prescriptions: [place] 7.5/325 I have explained and demonstrated active assisted knee extension exercises. Pepito Hamilton MD ([facility]) Jul 11, 2017 07:12
--- NOTE | 2017-07-11 07:37 | HHI.DS ---
Discharge Summary Admission Date Jul 09, 2017 at 05:17 Discharge Date: Jul 11, 2017 Admitting Diagnosis Primary osteoarthritis, left knee. Diagnosis: (1) Primary osteoarthritis of left knee ICD Codes: M17.12 - Unilateral primary osteoarthritis, left knee Status: Resolved (2) Status post total left knee replacement ICD Codes: Z96.652 - Presence of left artificial knee joint Status: Chronic (3) Diabetes type 2, uncontrolled Diagnosis: Secondary ICD Codes: E11.65 - Type 2 diabetes mellitus with hyperglycemia Status: Chronic Procedures Left total knee arthroplasty using Tiki Triathlon prosthesis (uncemented) on 07/09/2017 Brief History This is a 51 year old female patient has had long-standing pain in her left knee that has been nonresponsive to conservative measures as detailed in the history and physical examination. Her physical findings showed some degenerative varum with crepitation on motion. There is significant tenderness. X-rays showed severe loss of joint space and osteophytes with eburnation. CBC/BMP: 07/10/17 0554 07/10/17 0554 Significant Findings Laboratory Tests Test 07/10/17 05:54 Hemoglobin 10.2 GM/DL (11.6-15.3) Hematocrit 29.9 % (35.0-46.0) Random Glucose 232 MG/DL (74-106) Albumin 2.9 GM/DL (3.4-5.0) Calcium Level 8.4 MG/DL (8.5-10.1) Estimat Glomerular Filtration Rate 62 ML/MIN (>89) Imaging Last 72 hours Impressions Knee X-Ray 07/09/17 0641 Signed Impressions: Service Date/Time: Sunday, July 09, 2017 10:51 - CONCLUSION: Status post total knee arthroplasty. Marty Carlin MD PE at Discharge She is resting comfortably, supine in bed, in the [facility]. The neurovascular status is intact. The dressing is dry and intact. Hospital Course The patient was admitted as noted above. The above noted operative procedure was carried out that day. Preoperatively prophylactic antibiotics were administered Ancef according to protocol. These were continued postoperatively. The patient also received tranexamic acid to help with hemostasis according to protocol. In the postanesthesia care unit a continuous passive motion device was initiated. Also initiated were mechanical methods of DVT prophylaxis in the form of KARLIE stockings and sequentials. Physical therapy was initiated on the day of surgery. On postoperative day #1 physical therapy continued. The use of the continuous passive motion device continued. DVT prophylaxis with aspirin 81 mg twice daily was initiated at this time. The patient continued physical therapy throughout the hospitalization. The distance walked and range of motion improved throughout the hospitalization. She was able to walk up to 110 feet with physical therapy on postoperative day 1. The patient was discharged on postoperative day 2 with the disposition being to home with home health care. An appointment for follow-up was made prior to admission. Pt Condition on Discharge: Good Discharge Disposition: Disch w/ Home Health Serv Discharge Instructions Diet Instructions: As Tolerated, No Restrictions, Diabetic Diet Activities You Can Perform: Full Weight Bearing, Shower Only-No Bath Activities to Avoid: Lifting/Bending, Strenuous Activity, Bathing, Driving Follow up Referrals: Orthopedics with Pepito Hamilton MD ([facility]) New Medications: Aspirin DR (Aspirin DR) 81 Mg Tabdr 81 MG PO BID for Prevent Blood Clot for 60 Days, #120 TAB Hydrocodone/Acetaminophen (Hydrocodone-Acetamin 7.5-325) 7.5 Mg-325 Mg Tablet 1 TAB PO Q4H PRN for PAIN SCALE 1 TO 10, #50 TAB Continued Medications: Cyclobenzaprine (Flexeril) 10 Mg Tab 10 MG PO TID for Muscle Spasm for 30 Days, #90 TAB 0 Refills Glipizide (Glipizide) 10 Mg Tab 10 MG PO DAILY for Blood Sugar Management, #30 TAB 0 Refills Take 30 minutes before a meal Ibuprofen (Ibuprofen) 600 Mg Tab 600 MG PO Q6H PRN for Pain/Inflammation, #40 TAB Insulin Aspart Inj (Novolog Flexpen Inj) 300 Unit/3 Ml Pen 1 UNITS SQ HS PRN for SLIDING SCALE, #1 PEN 0 Refills Insulin Detemir Inj (Levemir Flextouch Pen Inj) 300 unit/3 ML Pen 35 UNITS SQ DAILY for Blood Sugar Management, PEN 0 Refills Levothyroxine (Synthroid) 200 Mcg Tab 225 MCG PO DAILY for Thyroid, #30 TAB 0 Refills Metformin (Metformin) 1,000 Mg Tab 1000 MG PO DAILY for Blood Sugar Management, #30 TAB 0 Refills With a meal Ranitidine (Ranitidine 75) 75 Mg Tab 75 MG PO DAILY for Heartburn, TAB 0 Refills Take 30 to 60 minutes before eating food or drinking beverages that cause heartburn. Pepito Hamilton MD ([place]) Jul 11, 2017 07:37
[2017-07-11 08:00] VITALS: BP 117/72; PULSE 101; RESP 18; TEMP 97.9; O2SAT 95
[2017-07-11] MEDS: DOCUSATE SODIUM 100 MG CAP PO SCH (09:00)
[2017-07-11] MEDS: INSULIN DETEMIR 100 UNITS/ML VIAL SQ SCH (09:00)
[2017-07-11] MEDS: metFORMIN HCL 500 MG TAB PO SCH (09:14)
[2017-07-11] MEDS: glipiZIDE 10 MG TAB PO SCH (09:14)
[2017-07-11] MEDS: ASPIRIN EC 81 MG TABEC PO SCH (09:14)
[2017-07-11] MEDS: FAMOTIDINE 20 MG TAB PO SCH (09:14)
[2017-07-11] MEDS: CYCLOBENZAPRINE HCL 10 MG TAB PO SCH ×3 (09:14→17:32)
[2017-07-11 09:17] LABS: HEMATOCRIT 27.5 % (35.0-46.0); HEMOGLOBIN 9.6 GM/DL (11.6-15.3)
[2017-07-11] MEDS: INSULIN ASPART SUPPLEMENTAL SCALE SQ SCH ×3 (09:21→17:00)
[2017-07-11 12:00] VITALS: BP 130/86; PULSE 102; RESP 18; TEMP 97.5; O2SAT 97
--- NOTE | 2017-07-11 15:46 | HHI.PR ---
Subjective Remarks patient seen this morning around 9 AM. Says she is feeling all right. Denies any chest pain or shortness breath. Objective Vital Signs Date Time Temp Pulse Resp B/P (MAP) Pulse Ox O2 Delivery O2 Flow Rate FiO2 07/11/17 12:00 97.5 102 18 130/86 (101) 97 07/11/17 08:00 97.9 101 18 117/72 (87) 95 07/11/17 04:05 97.7 102 17 131/73 (92) 96 07/11/17 00:15 97.9 90 17 130/72 (91) 94 07/10/17 20:40 98.0 93 18 101/64 (76) 97 07/10/17 20:15 Room Air 07/10/17 17:11 98 21 07/10/17 16:00 98.3 96 18 116/59 (78) 98 I/O 07/10/17 07/10/17 07/10/17 07/11/17 07/11/17 07/11/17 07:00 15:00 23:00 07:00 15:00 23:00 Intake Total 580 ml 480 ml 960 ml Output Total 100 ml 175 ml 28 ml 75 ml Balance 480 ml 480 ml -175 ml 932 ml -75 ml Intake Oral 480 ml 480 ml 960 ml IV Total 100 ml Output Urine Total 3 ml Drainage Total 100 ml 175 ml 25 ml 75 ml # Voids 2 3 # Bowel Movements 0 0 0 Result Diagram: 07/11/17 0730 07/10/17 0554 Objective Remarks GENERAL: Patient sitting up in bed. Appears comfortable. Alert and oriented 3.no change on exam SKIN: Warm and dry. HEAD: Normocephalic. EYES: No scleral icterus. No injection or drainage. NECK: Supple, trachea midline. No JVD. CARDIOVASCULAR: Regular rate and rhythm without murmurs, gallops, or rubs. RESPIRATORY: Breath sounds equal bilaterally. No accessory muscle use. GASTROINTESTINAL: Abdomen soft, non-tender, nondistended. MUSCULOSKELETAL: No cyanosis, or edema. Postoperative knee not examined. BACK: Nontender without obvious deformity. No CVA tenderness. A/P Assessment and Plan //Postoperative left knee replacement = Post surgical management as per surgical service. = Awaiting return of bowel function. Laxatives ordered //Hypothyroidism. Chronic. Continue home medications //Diabetes mellitus. Chronic. = Diabetic diet, insulin signs scale. Continue to monitor blood sugars. = 07/10 still with sugars elevated this morning in the 300s. Discussed with nursing. We will increase sliding scale to home regimen, and give long-acting Levemir this morning. =07/11. Resolved on home regimen. Continue to monitor. //Hyperlipidemia. Chronic. Continue home medications. //GERD. Chronic. Continue ranitidine //Prophylaxis. As per surgical service. Discharge Planning blood sugars improved on home insulin regimen. Patient is cleared for discharge medically at this time.laxatives having given for constipation Brain Gonzalez MD Jul 11, 2017 15:46
== END 2017-07-11 17:38 | disposition home health service (06) | DRG 470 ==
LOC: HSDI 07-09 05:17 → N06A 07-09 14:17 → UNDODISIN 07-11 10:59
PROVIDERS: ADMIT Orthopaedic Surgery; ATTEND Orthopaedic Surgery
PROC: 0SRD0JA Replacement of Left Knee Joint with Synthetic Substitute, Uncemented, Open Approach (ICD-10-PCS; 2017-07-09)
PROC: 3E0T3BZ Introduction of Anesthetic Agent into Peripheral Nerves and Plexi, Percutaneous Approach (ICD-10-PCS; principal; 2017-07-09 06:57)
DX: M17.12 Unilateral primary osteoarthritis, left knee (principal); M21.162 Varus deformity, not elsewhere classified, left knee; M25.762 Osteophyte, left knee; E11.65 Type 2 diabetes mellitus with hyperglycemia; E03.9 Hypothyroidism, unspecified; E78.5 Hyperlipidemia, unspecified; K21.9 Gastro-esophageal reflux disease without esophagitis; Z87.891 Personal history of nicotine dependence; Z79.4 Long term (current) use of insulin
CPT/HCPCS: 73560; 80069; 82948; 83735; 85014; 85018; 86850; 86900; 86901; 94150; C1776; C9290; J0131; J0690; J1580; J1815; J1885; J2250; J2370; J2405; J2710; J3010; J7040; J7120

== ENCOUNTER → 2017-06-22 | Outpatient (CLI) | payer OTHER ==
[~2017-06-22] MED LIST changes: +INSU1INJ5 SQ; +NOVOINJ3 SQ
[2017-06-22 08:45] LABS: HEMATOCRIT 35.9 % (35.0-46.0); HEMOGLOBIN 12.4 GM/DL (11.6-15.3); MEAN CELL VOLUME 77.4 FL (80.0-100.0); MEAN CORPUSCULAR HEMOGLOBIN 26.6 PG (27.0-34.0); MEAN CORPUSCULAR HGB CONC 34.4 % (32.0-36.0); MEAN PLATELET VOLUME 7.7 FL (7.0-11.0); PLATELET COUNT 286 TH/MM3 (150-450); RED BLOOD COUNT 4.64 MIL/MM3 (4.00-5.30); RED CELL DISTRIBUTION WIDTH 13.5 % (11.6-17.2); WHITE BLOOD COUNT 6.9 TH/MM3 (4.0-11.0)
[2017-06-22 09:01] LABS: PROTHROMBIN TIME - PATIENT 9.9 SEC (9.8-11.6)
[2017-06-22 09:07] LABS: BICARBONATE 30.9 MEQ/L (21.0-32.0); CALCIUM 9.6 MG/DL (8.5-10.1); CREATININE 0.73 MG/DL (0.50-1.00)
[2017-06-22 10:16] LABS: BACTERIA, URINE RARE /hpf; BILIRUBIN, URINE NEG (NEG); BLOOD, URINE NEG (NEG); GLUCOSE,URINE NEG (NEG); KETONE, URINE NEG (NEG); NITRITE,URINE NEG (NEG); SQUAMOUS EPITHELIAL CELL URINE <1 /hpf (0-5); URINE COLOR YELLOW (YELLW/STRAW); URINE LEUKOCYTE ESTERASE MOD (NEG)
--- NOTE | 2017-06-22 23:34 | EKG ---
Date Performed: 06/22/2017 Time Performed: 08:31:01 PTAGE: 51 years EKG: Sinus rhythm PREVIOUS TRACING : 10/26/2015 16.02 Since the prior tracing, there has been no significan t change DOCTOR: Alissa Weiss Interpretating Date/Time 06/22/2017 23:32:41
== END ==
LOC: CPRE 07:51
PROVIDERS: ATTEND Orthopaedic Surgery
DX: Z01.812 Encounter for preprocedural laboratory examination (principal); Z01.810 Encounter for preprocedural cardiovascular examination; M17.12 Unilateral primary osteoarthritis, left knee; M21.162 Varus deformity, not elsewhere classified, left knee; M79.609 Pain in unspecified limb; R82.99 Other abnormal findings in urine
CPT/HCPCS: 36415; 80048; 81001; 85027; 85610; 85730; 87086; 93005